=== PATIENT | male | born 1975 | race Caucasian/White ===

== ENCOUNTER 2017-03-11 15:43 | Observation (INO) | payer BC ==
--- NOTE | 2017-03-11 16:22 | C.PDOC ---
History Of Present Illness 41M c/o pain in left low back rad around to left groin that started just 45 min ago. his aunt his a physician and she rx him oxycodone which he took one just lighter captain and rec "CT for renal colic." the pt also reports intermittent left side head "pressure" for the last 3 weeks, approx every 3 days, no exac or reliev fx. no headache currently. Time Seen by Provider: 03/11/17 16:21 Chief Complaint (Nursing): Abdominal Pain Past Medical History Vital Signs: Last Vital Signs Temp 98.4 F 03/11/17 16:11 Pulse 77 03/11/17 16:11 Resp 16 03/11/17 16:11 BP 145/91 H 03/11/17 16:11 Pulse Ox 98 03/11/17 18:53 Surgical History: Cholecystectomy Family History: States: Other Other Family History: nc - Social History Hx Alcohol Use: No Hx Substance Use: No - Immunization History Hx Tetanus Toxoid Vaccination: No Hx Influenza Vaccination: No Hx Pneumococcal Vaccination: No Review Of Systems Except As Marked, All Systems Reviewed And Found Negative. Constitutional: Negative for: Fever Eyes: Negative for: Vision Change Cardiovascular: Negative for: Chest Pain Respiratory: Negative for: Cough, Shortness of Breath Gastrointestinal: Positive for: Nausea, Abdominal Pain. Negative for: Vomiting , Diarrhea Genitourinary: Negative for: Dysuria, Hematuria Neurological: Positive for: Headache. Negative for: Weakness, Numbness, Confusion, Altered Mental Status Physical Exam - Physical Exam Appears: Well, Non-toxic, No Acute Distress Skin: Warm, Dry Eye(s): bilateral: PERRL, EOMI Nose: No Epistaxis Oral Mucosa: Moist Neck: Supple Cardiovascular: Rhythm Regular Respiratory: No Decreased Breath Sounds, No Accessory Muscle Use, No Rales, No Rhonchi, No Stridor, No Wheezing Gastrointestinal/Abdominal: Soft, No Tenderness, No Distention, No Guarding, No Rebound Back: Paraspinal Tenderness (left lumbar) Extremity: No Swelling Pulses: Left Dorsalis Pedis: Normal, Right Dorsalis Pedis: Normal Neurological/Psych: Oriented x3, Normal Motor, Normal Sensation, Other (no focal deficits) ED Course And Treatment - Laboratory Results Result Diagrams: 03/11/17 16:45 03/11/17 16:45 O2 Sat by Pulse Oximetry: 98 Medical Decision Making Medical Decision Making: CT Head: EXAM: CT Head Without Intravenous Contrast CLINICAL HISTORY: 41 years old, male; Pain; Headache; Headache not specified TECHNIQUE: Axial computed tomography images of the head/brain without intravenous contrast. All CT scans at this facility use one or more dose reduction techniques, viz.: automated exposure control; ma/kV adjustment per patient size (including targeted exams where dose is matched to indication; i.e. head); or iterative reconstruction technique. Coronal and sagittal reformatted images were created and reviewed. COMPARISON: No relevant prior studies available. FINDINGS: Brain: Unremarkable. No hemorrhage. No significant white matter disease. No edema. Normal alcocer white matter interfaces are present. Ventricles: Unremarkable. No ventriculomegaly. Bones/joints: Unremarkable. No acute fracture. Soft tissues: Unremarkable. Sinuses: Opacification of the ethmoid sinuses. Mucosal thickening of the frontal and right sphenoid sinus. There is bilateral medial maxillectomy and inferior ethmoidectomy changes. Mastoid air cells: Unremarkable as visualized. No mastoid effusion. IMPRESSION: Chronic sinus disease and evidence of prior sinus surgery. No acute intracranial findings are visualized. CT abdomen EXAM: CT Abdomen and Pelvis Without Intravenous Contrast CLINICAL HISTORY: 41 years old, male; Pain; Abdominal pain; Flank; Left; Additional info: Eval for ureteral stone TECHNIQUE: Axial computed tomography images of the abdomen and pelvis without intravenous contrast. All CT scans at this facility use one or more dose reduction techniques, viz.: automated exposure control; ma/kV adjustment per patient size (including targeted exams where dose is matched to indication; i.e. head); or iterative reconstruction technique. Coronal and sagittal reformatted images were created and reviewed. COMPARISON: No relevant prior studies available. FINDINGS: Lower thorax: Lingular scar is present. ABDOMEN: Liver: There is a diffuse moderate decrease in hepatic parenchymal density, consistent with moderate fatty infiltration. There are no focal liver lesions present. Gallbladder and bile ducts: There has been a cholecystectomy. Pancreas: Unremarkable. No ductal dilation. Spleen: Unremarkable. No splenomegaly. Adrenals: Unremarkable. No mass. Kidneys and ureters: There is moderate hydronephrosis hydroureter of the left collecting system secondary to a partially obstructing stone located in the left distal ureter near the pelvic brim measuring 3.5 mm. Stomach and bowel: The stomach is normal. Bowel loops appear within normal limits, no signs of wall thickening, mucosal edema, or bowel distention. Appendix: A normal appendix seen in the right lower quadrant. PELVIS: Bladder: Unremarkable. No stones. Reproductive: Unremarkable as visualized. ABDOMEN and PELVIS: Intraperitoneal space: Unremarkable. No free air. No significant fluid collection. Bones/joints: No acute fracture. No dislocation. Soft tissues: Small fat-containing paraumbilical hernia is present. Vasculature: Unremarkable. No abdominal aortic aneurysm. Lymph nodes: Unremarkable. No enlarged lymph nodes. IMPRESSION: Left hydronephrosis and a partially obstructing stone distal left ureter. Marked hepatic steatosis. Cholecystectomy. Fat containing periumbilical hernia. Disposition - Disposition Forms: [employer] ([place]izen [place])
[2017-03-11] MEDS ORDERED: Sodium Chloride 0.9% 1,000 ML IV ONE (16:30)
[2017-03-11] MEDS ORDERED: Sodium Chloride 0.9% 1,000 ML ONE ×2 (16:46→19:45)
[2017-03-11 16:53] LABS: BASO # 0.1 K/uL (0.0-0.2); BASO % 0.7 % (0.0-2.0); EOS # 0.5 K/uL (0.0-0.7); EOS % 4.7 % (0.0-4.0); HEMATOCRIT 40.9 % (35.0-51.0); LYMPH # 2.7 K/uL (1.0-4.3); LYMPH % 24.3 % (20.0-40.0); MEAN CELL VOLUME 78.7 fL (80.0-94.0); MEAN CORPUSCULAR HEMOGLOBIN 26.2 pg (27.0-31.0); MEAN CORPUSCULAR HGB CONC 33.3 g/dL (33.0-37.0); MEAN PLATELET VOLUME 8.4 fL (7.2-11.7); MONO # 0.8 K/uL (0.0-0.8); MONO % 7.2 % (0.0-10.0); NRBC % 0.1 % (0.0-2.0); RED CELL DISTRIBUTION WIDTH 14.2 % (11.5-14.5); WHITE BLOOD COUNT 11.2 K/uL (4.8-10.8)
[2017-03-11 17:04] LABS: RBC URINE 104 /hpf (0-3); URINE BACTERIA RARE (<OCC); URINE BILIRUBIN NEGATIVE (NEGATIVE); URINE BLOOD 2+ (NEGATIVE); URINE COLOR Yellow (YELLOW); URINE GLUCOSE (UA) NORMAL (Normal); URINE KETONE NEGATIVE (NEGATIVE); URINE LEUKOCYTE ESTERASE NEG Leu/uL (Negative); URINE PROTEIN 2+ mg/dL (NEGATIVE); URINE UROBILINOGEN NORMAL mg/dL (0.2-1.0); WBC URINE 3 /hpf (0-5)
[2017-03-11 17:29] LABS: BILIRUBIN,TOTAL 0.6 mg/dL (0.2-1.3); CALCIUM 8.4 mg/dl (8.6-10.4); GFR AFRICAN-AMERICAN > 60; GLUCOSE,RANDOM 109 mg/dL (75-110); TOTAL PROTEIN 8.3 g/dL (6.3-8.3)
[2017-03-11 17:34] LABS: ALKALINE PHOSPHATASE 55 U/L (38-126); ALT/SGPT 55 U/L (21-72); AST/SGOT 36 U/L (17-59); BLOOD UREA NITROGEN 20 mg/dL (9-20); CARBON DIOXIDE 24 mmol/L (22-30); CHLORIDE 100 mmol/L (98-107); SODIUM 132 mmol/L (132-148)
--- NOTE | 2017-03-11 18:41 | CT ---
PROCEDURE: CT HEAD WITHOUT CONTRAST. HISTORY: headache COMPARISON: None available. TECHNIQUE: Axial computed tomography images were obtained through the head/brain without intravenous contrast. Radiation dose: Total exam DLP = 912. 93 mGy-cm. This CT exam was performed using one or more of the following dose reduction techniques: Automated exposure control, adjustment of the mA and/or kV according to patient size, and/or use of iterative reconstruction technique. FINDINGS: HEMORRHAGE: No acute parenchymal, subarachnoid nor extra-axial hemorrhage. BRAIN: No evidence of large acute infarct. No obvious parenchymal nor extra-axial mass or collection seen on this noncontrast study. Mild generalized volume loss. VENTRICLES: No obstructive hydrocephalus. CALVARIUM: Fractures. There are no acute calvarial fractures. Questionable mild left temporoparietal soft tissues swelling PARANASAL SINUSES: Extensive postoperative changes involving the nasal cavity including resection of the middle turbinates, the medial wall antrostomies as well as multiple ethmoid septations. Anterior wall of the left chamber sphenoid sinus has also been resected. Moderate mucosal thickening noted within the residual ethmoid air complex extending superiorly into the frontal sinus. There is mild mucosal thickening right chamber sphenoid sinus and minor mucosal thickening both maxillary antra. MASTOID AIR CELLS: Unremarkable as visualized. No inflammatory changes. OTHER FINDINGS: Orbits and contents unremarkable. IMPRESSION: No acute intracranial hemorrhage. . Extensive postoperative changes of the nasal cavity and paranasal sinuses as above. . Questionable mild left temporoparietal scalp swelling.
[2017-03-11] MEDS: Sodium Chloride 0.9% 1,000 ML IV SCH (19:42)
--- NOTE | 2017-03-11 20:38 | CP.PCM.HP ---
History of Present Illness - History of Present Illness History of Present Illness: severe flank pain raditing to groin Present on Admission - Present on Admission Any Indicators Present on Admission: No Review of Systems - Review of Systems Systems not reviewed;Unavailable: Acuity of Condition - Constitutional Constitutional: Weight Gain - EENT Eyes: Pain Ears: As Per HPI Nose/Mouth/Throat: Post Nasal Drip - Cardiovascular Cardiovascular: As Per HPI - Respiratory Respiratory: As Per HPI - Gastrointestinal Gastrointestinal: As Per HPI - Genitourinary Genitourinary: Flank Pain, Hematuria, Hx Renal/Bladder Calculi - Reproductive: Male Reproductive:Male: As Per HPI - Musculoskeletal Musculoskeletal: Back Pain - Integumentary Integumentary: As Per HPI - Neurological Neurological: As Per HPI - Psychiatric Psychiatric: As Per HPI - Endocrine Endocrine: As Per HPI - Hematologic/Lymphatic Hematologic: As Per HPI Past Patient History - Infectious Disease Hx of Infectious Diseases: None - Past Social History Smoking Status: Never Smoked Chewing Tobacco Use: No Cigar Use: No Alcohol: None Home Situation {Lives}: Alone - CARDIAC Hx Cardiac Disorders: No - PULMONARY Hx Respiratory Disorders: No - HEENT Hx Sinusitis: Yes - PSYCHIATRIC Hx Substance Use: No - SURGICAL HISTORY Hx Cholecystectomy: Yes - ANESTHESIA Hx Anesthesia: Yes Hx Anesthesia Reactions: No Meds Allergies/Adverse Reactions: Allergies Allergy/AdvReac Type Severity Reaction Status Date / Time No Known Allergies Allergy Verified 03/11/17 16:16 Physical Exam - Constitutional Appears: In Acute Distress - Head Exam Head Exam: ATRAUMATIC - Eye Exam Eye Exam: Periorbital tenderness Pupil Exam: PERRL - ENT Exam Additional comments: tender ethoid sinus l - Neck Exam Neck exam: Positive for: Full Rom, Normal Inspection - Respiratory Exam Respiratory Exam: Clear to Auscultation Bilateral, NORMAL BREATHING PATTERN - Cardiovascular Exam Cardiovascular Exam: REGULAR RHYTHM - GI/Abdominal Exam GI & Abdominal Exam: Normal Bowel Sounds - Rectal Exam Rectal Exam: Deferred - Extremities Exam Extremities exam: Positive for: normal inspection - Back Exam Back exam: NORMAL INSPECTION - Neurological Exam Neurological exam: Alert, Normal Gait, Oriented x3 - Psychiatric Exam Psychiatric exam: Normal Affect - Skin Skin Exam: Intact Results - Vital Signs Recent Vital Signs: Last Vital Signs Temp 98.2 F 03/11/17 19:45 Pulse 75 03/11/17 19:45 Resp 17 03/11/17 19:45 BP 140/72 03/11/17 19:45 Pulse Ox 98 03/11/17 19:45 - Labs Result Diagrams: 03/11/17 16:45 03/11/17 16:45 Labs: Laboratory Results - last 24 hr 03/11/17 03/11/17 03/11/17 16:45 16:45 16:45 WBC 11.2 H RBC 5.20 Hgb 13.6 Hct 40.9 MCV 78.7 L MCH 26.2 L MCHC 33.3 RDW 14.2 Plt Count 217 MPV 8.4 Neut % (Auto) 63.1 Lymph % (Auto) 24.3 [place] % (Auto) 7.2 Eos % (Auto) 4.7 H Baso % (Auto) 0.7 Neut # 7.1 H Lymph # 2.7 [place] # 0.8 Eos # 0.5 Baso # 0.1 Sodium 132 Potassium 4.0 Chloride 100 Carbon Dioxide 24 Anion Gap 12 BUN 20 Creatinine 0.7 L Est GFR ( Amer) > 60 Est GFR (Non-Af Amer) > 60 Random Glucose 109 Calcium 8.4 L Total Bilirubin 0.6 AST 36 ALT 55 Alkaline Phosphatase 55 Total Protein 8.3 Albumin 4.2 Globulin 4.1 H Albumin/Globulin Ratio 1.0 Lipase 97 Urine Color Yellow Urine Clarity Clear Urine pH 6.0 Ur Specific [place] 1.019 Urine Protein 2+ H Urine Glucose (UA) Normal Urine Ketones Negative Urine Blood 2+ H Urine Nitrate Negative Urine Bilirubin Negative Urine Urobilinogen Normal Ur Leukocyte Esterase Neg Urine WBC (Auto) 3 Urine RBC (Auto) 104 H Ur Squamous Epith Cells 1 Urine Bacteria Rare Assessment & Plan - Assessment and Plan (Free Text) Assessment: acute renal uretral stone hematuri sinusitis htn new hydronephrosis Plan: hydration pain management urology consult strain urin Decision To Admit - Pt Status Changed To: Hospital Disposition Of: Inpatient - Admit Certification Admit to Inpatient:: After my assessment, the patient will require hospitalization for at least two midnights. This is because of the severity of symptoms shown, intensity of services needed, and/or the medical risk in this patient being treated as an outpatient. - InPatient: Physician Admission Certification:: pt will have iv antibiotics iv hydration pain management and antibiotics posible cystoscopy in am - . Bed Request Type: Regular
[2017-03-11] MEDS ORDERED: cefTRIAXone IV 1 gm in Dextros 50 ML IVPB ONE (21:20)
[2017-03-11] MEDS: cefTRIAXone IV 1 gm in Dextros 50 ML IVPB SCH (21:23)
[2017-03-11] MEDS ORDERED: Fluticasone Nasal 50 mcg/Spray NAS SCH (22:00)
[2017-03-11 22:36] LABS: CHOLESTEROL 181 mg/dL (0-199)
[2017-03-11 22:37] LABS: INR 1.1
[2017-03-12] MEDS: Sodium Chloride 0.9% 1,000 ML IV SCH ×3 (00:30→09:58)
--- NOTE | 2017-03-12 09:27 | RAD ---
HISTORY: preop COMPARISON: None available. TECHNIQUE: Chest PA and lateral FINDINGS: LUNGS: No active pulmonary disease. PLEURA: No significant pleural effusion identified. No pneumothorax apparent. CARDIOVASCULAR: Normal. OSSEOUS STRUCTURES: No significant abnormalities. VISUALIZED UPPER ABDOMEN: Normal. OTHER FINDINGS: None. IMPRESSION: No acute cardiopulmonary disease appreciated.
[2017-03-12] MEDS: cefTRIAXone IV 1 gm in Dextros 50 ML IVPB SCH ×2 (10:01→20:58)
--- NOTE | 2017-03-12 10:32 | CT ---
PROCEDURE: CT scan abdomen and pelvis dated 03/11/2017. HISTORY: Evaluate for ureteral stone. COMPARISON: No prior study available for comparison TECHNIQUE: Contiguous axial images of the abdomen and pelvis performed without oral or intravenous contrast material. . Coronal and Sagittal reformats generated. Radiation dose: Total exam DLP = 1472.63 mGy-cm. This CT exam was performed using one or more of the following dose reduction techniques: Automated exposure control, adjustment of the mA and/or kV according to patient size, and/or use of iterative reconstruction technique. FINDINGS: LOWER THORAX: The mild chronic linear atelectasis/ scarring changes both lung bases including the lingular and middle lobe regions. . There also appears to be mild ground-glass opacities likely representing passive/dependent type atelectasis and/or air trapping. No evidence of effusion or basilar pneumothorax. . There is a small hiatal hernia slight wall thickening of distal esophagus likely due to protrusion/spur. Possibility of esophagitis not excluded. . LIVER: The liver is enlarged measuring approximately 24.5 cm in CC dimension. . Moderate diffuse fatty hepatic infiltration. No obvious hepatic mass or collection identified on this noncontrast exam. Unremarkable. No gross lesion or ductal dilatation. GALLBLADDER AND BILE DUCTS: Changes of cholecystectomy. PANCREAS: The pancreas appears grossly unremarkable. SPLEEN: Spleen is enlarged measuring 14.6 cm in AP dimension. No obvious splenic mass collection or calcification. . ADRENALS: No adrenal lesions seen. KIDNEYS AND URETERS: Kidneys demonstrate relatively symmetric size. There is moderate left-sided hydronephrosis due to a small calculus within the distal left ureter that measures approximately 4.5 mm. This is best seen on axial image number [id number] BLADDER: Grossly. The urinary bladder is incompletely distended which presumably accounts slight thick-walled appearance the possibility of a cystitis cannot be excluded. REPRODUCTIVE: Unremarkable. APPENDIX: Normal-appearing appendix best seen on axial image number [id number]. BOWEL: Evaluation of the bowel is limited due to the lack of oral contrast material. Stomach is incompletely distended which presumably accounts for slight thick-walled appearance. Visualized loops of small bowel exhibit normal contour and caliber. No evidence of acute mechanical small bowel obstruction. Stool and air seen throughout the large bowel with no definitive abnormal mural wall thickening. PERITONEUM: Unremarkable. No fluid collection. No free air. There is a small fat containing umbilical hernia. Small small fat containing bilateral inguinal hernias. LYMPH NODES: Several on small to medium sized retroperitoneal lymph nodes are present. There are a few small rule out nonspecific mesenteric lymph nodes seen in the right lower quadrant of the abdomen; rule out mild mesenteric adenitis. VASCULATURE: Unremarkable. No aortic aneurysm. BONES: No fracture or destructive lesion. OTHER FINDINGS: None. IMPRESSION: Distal left ureteral calculus with moderate hydronephrosis. Hepatomegaly with fatty hepatic infiltration. Splenomegaly. Status post cholecystectomy Fat containing umbilical and bilateral inguinal hernias.
[2017-03-12] MEDS ORDERED: Midazolam 2 MG/2 ML VIAL ONE (13:28)
[2017-03-12] MEDS ORDERED: Propofol 10 mg/ml Inj (20 ML) ONE (13:28)
--- NOTE | 2017-03-12 14:49 | RAD ---
PROCEDURE: Intraoperative Fluoroscopy. HISTORY: LT HYDRONEPHROSIS FINDINGS: Fluoroscopic assistance was provided. 29.6 seconds fluoroscopy time utilized during this procedure. Radiation dose = 0.90729 mGy-cm.
--- NOTE | 2017-03-12 14:53 | CON ---
HISTORY OF PRESENT ILLNESS: The patient presented to the emergency room with severe left flank pain radiating to the left lower quadrant; has distended abdomen. CT scan of abdomen revealed 5.1 mm stone in the distal left ureter causing obstruction in the hydro. Right kidney normal. Bladder itself normal. The stone is in the pelvic brim. The patient was in severe pain required medication continuously; has no history of previous stone, no history of any surgery, voiding well, no dysuria, and no urgency. PHYSICAL EXAMINATION: ABDOMEN: Revealed soft, left flank tenderness, left lower quadrant tenderness. GENITOURINARY: Testes in the scrotum. Penis within normal limit. IMPRESSION: Left ureteral stone with obstruction. PLAN: Cystourethroscopy and laser. Rochelle Cheng MD
[2017-03-12] MEDS ORDERED: Oxycodone/Acetaminophen 5/325 mg Tab PO PRN (14:56)
--- NOTE | 2017-03-12 16:41 | CP.PCM.PN ---
Subjective - Date & Time of Evaluation Date of Evaluation: 03/12/17 Time of Evaluation: 16:38 - Subjective Subjective: pt had procedure today lithotrepsy and stint Objective - Vital Signs/Intake and Output Vital Signs (last 24 hours): Temp Pulse Resp BP Pulse Ox 97.8 F 70 11 L 108/64 99 03/12/17 16:00 03/12/17 16:00 03/12/17 16:00 03/12/17 16:00 03/12/17 16:00 Intake and Output: 03/12/17 03/12/17 06:59 18:59 Intake Total 1050 900 Balance 1050 900 - Medications Medications: Current Medications Fluticasone Propionate (Flonase) 2 spr DORIE HS [facility] Sodium Chloride (Sodium Chloride 0.9%) 1,000 mls @ 150 mls/hr IV .Q6H40M [facility] Last Admin: 03/12/17 09:58 Dose: Not Given Ceftriaxone Sodium (Rocephin Iv 1 Gm Duplex) 50 mls @ 100 mls/hr IVPB Q12H [facility] Last Admin: 03/12/17 10:01 Dose: 100 mls/hr Ketorolac Tromethamine (Toradol) 30 mg IVP ONCE PRN PRN Reason: Pain, moderate (4-7) Stop: 03/12/17 16:54 Last Admin: 03/12/17 15:12 Dose: 30 mg Morphine Sulfate (Morphine) 2 mg IVP Q4 PRN PRN Reason: Pain, moderate (4-7) Ondansetron HCl (Zofran Inj) 4 mg IVP ONCE PRN PRN Reason: Nausea/Vomiting Stop: 03/12/17 16:55 Oxycodone/Acetaminophen (Percocet 5/325 Mg Tab) 1 tab PO Q4H PRN PRN Reason: Pain, moderate (4-7) Stop: 03/15/17 14:57 Pneumococcal Polyvalent Vaccine (Pneumovax 23 Vaccine) 0.5 ml IM .ONCE ONE Stop: 03/14/17 10:01 Tamsulosin HCl (Flomax) 0.4 mg PO DAILY [facility] Last Admin: 03/12/17 10:01 Dose: 0.4 mg - Labs Labs: 03/11/17 16:45 03/11/17 16:45 PT 12.2 SECONDS (9.7-12.2) 03/11/17 22:19 INR 1.1 03/11/17 22:19 APTT 29 SECONDS (21-34) 03/11/17 22:19 - Constitutional Appears: Non-toxic - Head Exam Head Exam: NORMAL INSPECTION - Eye Exam Eye Exam: Normal appearance, PERRL - ENT Exam ENT Exam: Mucous Membranes Moist - Neck Exam Neck Exam: Full ROM - Respiratory Exam Respiratory Exam: NORMAL BREATHING PATTERN - Cardiovascular Exam Cardiovascular Exam: REGULAR RHYTHM - GI/Abdominal Exam GI & Abdominal Exam: Normal Bowel Sounds - Rectal Exam Rectal Exam: NORMAL INSPECTION - Exam Exam: NORMAL INSPECTION - Extremities Exam Extremities Exam: Full ROM - Back Exam Back Exam: NORMAL INSPECTION - Neurological Exam Neurological Exam: Normal Gait - Psychiatric Exam Psychiatric exam: Normal Affect - Skin Skin Exam: Normal Color, Warm Assessment and Plan - Assessment and Plan (Free Text) Assessment: ac renal colic uretral stone hematurea s/p lithotrepsy and stint drowsy Plan: cont curent treatment and iv fluids
[2017-03-12 16:52] VITALS: RESP 20
--- NOTE | 2017-03-12 17:54 | CARD ---
APPROVED REPORT EKG Measurement Heart [id number] <Conclusion> Normal sinus rhythm incomplete [id number]
[2017-03-12] MEDS ORDERED: Sodium Chloride 0.9% 1,000 ML IV SCH (19:33)
[2017-03-13 00:17] VITALS: TEMP 97.8
[2017-03-13 08:12] VITALS: BP 136/86; PULSE 75; O2SAT 97
--- NOTE | 2017-03-13 09:00 | CP.PCM.PN ---
Subjective - Date & Time of Evaluation Date of Evaluation: 03/13/17 Time of Evaluation: 08:57 - Subjective Subjective: slight pain flank area no hematurea today Objective - Vital Signs/Intake and Output Vital Signs (last 24 hours): Temp Pulse Resp BP Pulse Ox 97.8 F 75 20 136/86 97 03/13/17 07:11 03/13/17 07:11 03/13/17 07:11 03/13/17 07:11 03/13/17 07:11 Intake and Output: 03/13/17 03/13/17 06:59 18:59 Intake Total 800 Output Total 500 Balance 300 - Medications Medications: Current Medications Fluticasone Propionate (Flonase) 2 spr DORIE HS [facility] Last Admin: 03/12/17 22:00 Dose: Not Given Ceftriaxone Sodium (Rocephin Iv 1 Gm Duplex) 50 mls @ 100 mls/hr IVPB Q12H [facility] Last Admin: 03/12/17 20:58 Dose: 100 mls/hr Sodium Chloride (Sodium Chloride 0.9%) 1,000 mls @ 100 mls/hr IV .Q10H [facility] Last Admin: 03/12/17 20:33 Dose: 100 mls/hr Morphine Sulfate (Morphine) 2 mg IVP Q4 PRN PRN Reason: Pain, moderate (4-7) Last Admin: 03/12/17 22:55 Dose: 2 mg Oxycodone/Acetaminophen (Percocet 5/325 Mg Tab) 1 tab PO Q4H PRN PRN Reason: Pain, moderate (4-7) Stop: 03/15/17 14:57 Pneumococcal Polyvalent Vaccine (Pneumovax 23 Vaccine) 0.5 ml IM .ONCE ONE Stop: 03/14/17 10:01 Tamsulosin HCl (Flomax) 0.4 mg PO DAILY [facility] Last Admin: 03/12/17 10:01 Dose: 0.4 mg - Labs Labs: 03/11/17 16:45 03/11/17 16:45 PT 12.2 SECONDS (9.7-12.2) 03/11/17 22:19 INR 1.1 03/11/17 22:19 APTT 29 SECONDS (21-34) 03/11/17 22:19 - Constitutional Appears: Non-toxic - Head Exam Head Exam: NORMAL INSPECTION - Eye Exam Eye Exam: Normal appearance Pupil Exam: NORMAL ACCOMODATION - ENT Exam ENT Exam: Mucous Membranes Moist - Neck Exam Neck Exam: Full ROM - Respiratory Exam Respiratory Exam: NORMAL BREATHING PATTERN - Cardiovascular Exam Cardiovascular Exam: REGULAR RHYTHM - GI/Abdominal Exam GI & Abdominal Exam: Normal Bowel Sounds - Rectal Exam Rectal Exam: NORMAL INSPECTION - Exam Exam: NORMAL INSPECTION - Extremities Exam Extremities Exam: Normal Inspection - Back Exam Back Exam: NORMAL INSPECTION - Neurological Exam Neurological Exam: Normal Gait - Skin Skin Exam: Normal Color Assessment and Plan - Assessment and Plan (Free Text) Assessment: acute renal colic improved uretral stone s/p lithotrepsy stint hyertriglyceredeamia Plan: d/c on med and diet
[2017-03-13] MEDS: cefTRIAXone IV 1 gm in Dextros 50 ML IVPB SCH (09:19)
[2017-03-13] MEDS ORDERED: Influenza Vaccine 60 mcg/0.5 mL SYR (4YR UP) IM ONE (10:00)
[2017-03-13] MEDS ORDERED: Pneumococcal 23-Valent Vaccine IM ONE (10:00)
--- NOTE | 2017-03-13 22:55 | OP ---
PROCEDURE DATE: PREOPERATIVE DIAGNOSIS: Left ureteral stone causing obstruction and hydronephrosis. POSTOPERATIVE DIAGNOSIS: Stone adherent to the left ureter with multiple *------* stone. Size of the stone 5.1 mm. PROCEDURE: Cystourethroscopy, laser of the stone, stone basketing and insertion of stents, multiple length. TYPE OF ANESTHESIA: LMA. DESCRIPTION OF PROCEDURE: While the patient in lithotomy position, genitalia prepped and draped in sterile fashion. The patient on antibiotic IV. Cystoscopy done, which revealed the urethra normal, prostate moderately enlarged elevating the bladder neck. The bladder is filled. No tumor. No stone. The trigone, I saw the right orifice easily. The left orifice, there was some difficulty because sitting on a small ridge. After seeing the left orifice, sensor wire inserted and passed the pelvic area where the stone got up to the left kidney. The cystoscope removed. The urethroscope inserted down to the bladder using another sensor wire to dilate the left orifice and guide the urethroscope by administering liquid to the ureter to dilate the ureter. The scope went up to upper part of the pelvic where the stone seen with multiple irregular stone attached to the wall of the ureter and causing edema and swollen. Picture taken. Laser of the stone, the stone fragmented to multiple pieces. Some of it flowed to the bladder, our basket. At the end of the procedure, most of the stone below 1 mm and after removing the urethroscope, 6-Armenian Multi-Length inserted at the position between the kidney and the bladder. The patient tolerated the procedure well and transferred to the recovery room in stable condition. Rochelle Cheng MD
[2017-03-14] MEDS ORDERED: Influenza Vaccine 60 mcg/0.5 mL SYR (4YR UP) IM ONE (10:00)
[2017-03-14] MEDS ORDERED: Pneumococcal 23-Valent Vaccine IM ONE (10:00)
== END 2017-03-13 11:24 | disposition home or self-care (01) ==
LOC: C.ER 15:43 → C.9E 19:05 → C.5S 23:04
PROVIDERS: ADMIT Internal Medicine; ATTEND Internal Medicine
DX: N13.2 Hydronephrosis with renal and ureteral calculous obstruction (principal); K42.9 Umbilical hernia without obstruction or gangrene; K76.0 Fatty (change of) liver, not elsewhere classified; N23 Unspecified renal colic; I10 Essential (primary) hypertension; Z90.49 Acquired absence of other specified parts of digestive tract
CPT/HCPCS: 52332; 70450; 71020; 74176; 76000; 80053; 80061; 81001; 83036; 83690; 85025; 85610; 85730; 90674; 90732; 93005; 96360; 96365; 96374; 99285; C1758; C1769; C2617; FLUOR; G0008; G0009; G0378; J0696; J1885; J2250; J2270; J2704; J3010; J7040; J7120